=== PATIENT | male | born 2000 | race African-American/Black ===

== ENCOUNTER 2019-01-25 17:16 | Emergency (ER) | payer BC ==
[~2019-01-25] VITALS: Ht 180.3 cm; Wt 81.6 kg
[2019-01-25 17:36] VITALS: BP_SYST 115
[2019-01-25] MEDS ORDERED: DIPHENHYDRAMINE INJ 50 MG/ML VIAL IM ONE (18:30)
[2019-01-25 18:45] VITALS: BP_SYST 121
== END 2019-01-25 18:45 | disposition home or self-care (01) ==
LOC: SED 17:16
DX: B36.0 Pityriasis versicolor (principal); L70.8 Other acne
CPT/HCPCS: 96372; 99283; J1200

== ENCOUNTER 2024-06-27 23:17 | Emergency (ER) | payer BC ==
[~2024-06-27] VITALS: Ht 182.9 cm; Wt 81.6 kg
[2024-06-27 23:45] VITALS: BP_SYST 142; PULSE 68; RESP 16; TEMP 98; O2SAT 100
[2024-06-28] MEDS ORDERED: NYST15CR37 TP (01:35)
[2024-06-28] MEDS ORDERED: CEPH-548 PO (01:35)
[2024-06-28 01:53] VITALS: BP_SYST 142; PULSE 68; RESP 16; TEMP 98; O2SAT 100
== END 2024-06-28 01:56 | disposition home or self-care (01) ==
LOC: SED 23:17
DX: N48.1 Balanitis (principal); N47.1 Phimosis
CPT/HCPCS: 36415; 87491; 99283